=== PATIENT | female | born 1990 | race African-American/Black ===

== ENCOUNTER 2018-05-30 22:04 | Emergency (ER) | payer MEDICAID ==
[2018-05-30] MEDS ORDERED: CLINDAMYCIN HCL 150 MG CAPSULE PO ONE (23:50)
--- NOTE | 2018-05-30 23:53 | ER Document Report ---
ED General - General Chief Complaint: Wound Infection Stated Complaint: POST OP PROBLEMS Time Seen by Provider: 05/30/18 23:01 Primary Care Provider: ARTURO HANSON MD [ACTIVE STAFF] - Follow up as needed (CALL TOMORROW AT 8AM FOR APPT) Notes: Patient is a 28-year-old female, 2 weeks status post , low-lying for delivery, presents with concerns of incisional site infection. The patient reports that for the past several days she has noted some mild pain to the middle area of her incision as well as some swelling to the area. She is also reporting some purulent drainage from the area. Pain is described as a throbbing, mild, constant discomfort. Touching the area worsens the pain. Nothing improves the pain. She did have her done at [facility], no local OB. Has not contacted the OB regarding her concerns. She has not had fever or constitutional symptoms. TRAVEL OUTSIDE OF THE [place] IN LAST 30 DAYS: No - Related Data Allergies/Adverse Reactions: No Known Allergies Allergy (Verified 05/30/18 22:15) Past Medical History - General Information source: Patient - Social History Smoking Status: Never Smoker Frequency of alcohol use: None Drug Abuse: None Lives with: Family Family History: Reviewed & Not Pertinent Patient has suicidal ideation: No Patient has homicidal ideation: No Renal/ Medical History: Denies: Hx Peritoneal Dialysis Review of Systems - Review of Systems Notes: Constitutional: Negative for fever. HENT: Negative for sore throat. Eyes: Negative for visual changes. Cardiovascular: Negative for chest pain. Respiratory: Negative for shortness of breath. Gastrointestinal: Negative for abdominal pain, vomiting or diarrhea. Genitourinary: Negative for dysuria. Musculoskeletal: Negative for back pain. Skin: Positive for incisional drainage Neurological: Negative for headaches, weakness or numbness. 10 point ROS negative except as marked above and in HPI. Physical Exam - Vital signs Vitals: Temp Pulse Resp BP Pulse Ox 98.3 F 84 18 131/84 H 98 05/30/18 22:25 05/30/18 22:25 05/30/18 22:25 05/30/18 22:25 05/30/18 22:25 Interpretation: Normal Notes: PHYSICAL EXAMINATION: GENERAL: Well-appearing, well-nourished and in no acute distress. HEAD: Atraumatic, normocephalic. EYES: Pupils equal round and reactive to light, extraocular movements intact, sclera anicteric, conjunctiva are normal. ENT: nares patent, oropharynx clear without exudates. Moist mucous membranes. NECK: Normal range of motion, supple without lymphadenopathy LUNGS: Breath sounds clear to auscultation bilaterally and equal. No wheezes rales or rhonchi. HEART: Regular rate and rhythm without murmurs ABDOMEN: Soft, nontender, normoactive bowel sounds. No guarding, no rebound. No masses appreciated. EXTREMITIES: Normal range of motion, no pitting or edema. No cyanosis. NEUROLOGICAL: No focal neurological deficits. Moves all extremities spontaneously and on command. PSYCH: Normal mood, normal affect. SKIN: Warm, Dry, normal turgor, the transverse incision has a small area of what appears to be an incisional abscess, mild fluctuance to the area. No surrounding erythema or significant induration. Course - Re-evaluation Re-evalutation: 05/30/18 23:52 Patient presents with terms of drainage from her low transverse incisional line. There is a small area of purulent accumulation in the midline of the incision that appears to be a small incisional abscess. Patient is otherwise well in appearance, no starting erythema. Abdominal exam is benign. Vitals within normal limits. Wound culture obtained. I did discuss with Dr. Hanson, patient will be seen in OB clinic tomorrow. Clindamycin has been initiated. At this time will discharge with return precautions and follow-up recommendations. Verbal discharge instructions given a the bedside and opportunity for questions given. Medication warnings reviewed. Patient is in agreement with this plan and has verbalized understanding of return precautions and the need for follow-up in OB clinic tomorrow - Vital Signs Vital signs: Temp Pulse Resp BP Pulse Ox 98.7 F 62 18 126/89 H 100 05/31/18 00:07 05/31/18 00:07 05/31/18 00:07 05/31/18 00:07 05/31/18 00:07 Discharge - Discharge Clinical Impression: Surgical site infection, section wound complication Condition: Good Disposition: HOME, SELF-CARE Additional Instructions: You need to follow-up in the OB clinic tomorrow. I spoke with Dr. Hanson the OBGYN talent consultant tonight. She said please call at 8 AM in the morning and get an appointment tomorrow. Take antibiotics as prescribed. Return sooner to the emergency department if you develop a fever of greater than 100.4 F, worsening swelling or drainage from the area, or any other symptoms that are worrisome to you Prescriptions: Clindamycin HCl 300 mg PO TID #30 capsule Referrals: ARTURO HANSON MD [ACTIVE STAFF] - Follow up as needed (CALL TOMORROW AT 8AM FOR APPT)
[2018-05-31 00:07] VITALS: BP 126/89
== END 2018-05-31 00:10 | disposition home or self-care (01) ==
LOC: ER 22:04
DX: O86.01 Infection of obstetric surgical wound, superficial incisional site (principal)
CPT/HCPCS: 99282; 87070; 87205; 87075; 87077; 87186; J3490

== ENCOUNTER 2018-12-04 00:57 | Emergency (ER) | payer SELFPAY ==
[2018-12-04 02:54] LABS: ABSOLUTE LYMPHOCYTES (AUTO) 1.8 10^3/uL (0.5-4.7); ABSOLUTE MONOCYTES (AUTO) 0.2 10^3/uL (0.1-1.4); ABSOLUTE NEUT (AUTO) 1.6 10^3/uL (1.7-8.2); BASOPHILS % (AUTO) 0.5 % (0-2); HEMOGLOBIN 11.7 g/dL (12.0-15.5); LYMPHOCYTES % (AUTO) 50.2 % (13-45); MEAN CORPUSCULAR HEMOGLOBIN 26.7 pg (27.0-33.4); MEAN CORPUSCULAR HGB CONC 32.6 g/dL (32.0-36.0); MEAN CORPUSCULAR VOLUME 82 fl (80-97); MONOCYTES % (AUTO) 5.8 % (3-13); PLATELET COUNT 167 10^3/uL (150-450); RED BLOOD COUNT 4.39 10^6/uL (3.72-5.28); RED CELL DISTRIBUTION WIDTH 15.8 % (11.5-14.0); SEGMENTED NEUTROPHILS % (AUTO) 42.5 % (42-78); TOTAL CELLS COUNTED % (AUTO) 100 %; WHITE BLOOD COUNT 3.7 10^3/uL (4.0-10.5)
[2018-12-04 03:07] LABS: AMORPHOUS SEDIMENT,URINE TRACE /HPF; APPEARANCE,URINE SLIGHTLY-CLOUDY; BILIRUBIN,URINE NEGATIVE (NEGATIVE); COLOR,URINE YELLOW; GLUCOSE, URINE NEGATIVE (NEGATIVE); KETONES,URINE NEGATIVE (NEGATIVE); LEUKOCYTE ESTERASE,URINE NEGATIVE (NEGATIVE); NITRITE,URINE NEGATIVE (NEGATIVE); PROTEIN,URINE NEGATIVE (NEGATIVE); URINE SPECIFIC GRAVITY 1.018; UROBILINOGEN,URINE NEGATIVE mg/dL (<2.0)
[2018-12-04 03:10] LABS: ANION GAP 9 (5-19); BLOOD UREA NITROGEN 9 mg/dL (7-20); CALCIUM 9.8 mg/dL (8.4-10.2); CARBON DIOXIDE 25 mmol/L (22-30); CHLORIDE 104 mmol/L (98-107); GLUCOSE 99 mg/dL (75-110); POTASSIUM 4.1 mmol/L (3.6-5.0)
[2018-12-04] MEDS ORDERED: FENTANYL CITRATE INJ/PF 100 MCG/2 ML AMPUL IV ONE (03:43)
--- NOTE | 2018-12-04 04:48 | RADIOLOGY REPORT (SQ) ---
CLINICAL HISTORY: BL pelvic pain COMPARISON: None. TECHNIQUE: US PELVIS TRANSVAGINAL on 12/04/2018 3:43 AM CDT FINDINGS: Uterus measures 8.9 cm. Endometrial stripe measures 14 mm. Both ovaries are normal in size with patent flow. Cervix measures 2.7 cm. IMPRESSION: Unremarkable study.
--- NOTE | 2018-12-04 05:07 | ER Document Report ---
ED General - General Chief Complaint: Abdominal Pain Stated Complaint: ABDOMINAL PAIN Time Seen by Provider: 12/04/18 02:50 Notes: Patient is a 28-year-old female presents to the emergency department with 24 hours lower pelvic pain. Patient's denying any nausea, vomiting, diarrhea. She is denying any fevers, dysuria, vaginal discharge. 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 Kimo hurd is worried said tumors are back. TRAVEL OUTSIDE OF THE [place] IN LAST 30 DAYS: No - Related Data Allergies/Adverse Reactions: No Known Allergies Allergy (Verified 05/30/18 22:15) Past Medical History - General Information source: Patient - Social History Smoking Status: Never Smoker Chew tobacco use (# tins/day): No Frequency of alcohol use: Occasional Drug Abuse: None Family History: Reviewed & Not Pertinent Patient has suicidal ideation: No Patient has homicidal ideation: No Renal/ Medical History: Denies: Hx Peritoneal Dialysis Review of Systems - Review of Systems Constitutional: denies: Fever EENT: No symptoms reported Cardiovascular: No symptoms reported Respiratory: No symptoms reported Gastrointestinal: See HPI Genitourinary: See HPI Female Genitourinary: See HPI Musculoskeletal: No symptoms reported Skin: No symptoms reported Hematologic/Lymphatic: No symptoms reported Neurological/Psychological: No symptoms reported Physical Exam - Vital signs Vitals: Temp Pulse Resp BP Pulse Ox 98.1 F 81 20 130/82 H 99 12/04/18 01:01 12/04/18 01:01 12/04/18 01:01 12/04/18 01:01 12/04/18 01:01 - Notes Notes: GENERAL: Alert, interacts well. No acute distress. HEAD: Normocephalic, atraumatic. EYES: Pupils equal, round, and reactive to light. Extraocular movements intact. ENT: Oral mucosa moist, tongue midline. NECK: Full range of motion. Supple. Trachea midline. LUNGS: Clear to auscultation bilaterally, no wheezes, rales, or rhonchi. No respiratory distress. HEART: Regular rate and rhythm. No murmur ABDOMEN: Soft, no McBurney's point tenderness, no Schneider sign noted, no left lower abdominal pain noted. Non-distended. Bowel sounds present in all 4 quadrants. Bilateral pelvic pain noted. EXTREMITIES: Moves all 4 extremities spontaneously. No edema, normal radial and dorsalis pedis pulses bilaterally. No cyanosis. BACK: no cervical, thoracic, lumbar midline tenderness. No saddle anesthesia, normal distal neurovascular exam. NEUROLOGICAL: Alert and oriented x3. Normal speech. cranial nerves II through XII grossly intact PSYCH: Normal affect, normal mood. SKIN: Warm, dry, normal turgor. No rashes or lesions noted. Course - Re-evaluation Re-evalutation: 12/04/18 05:05 Laboratory 12/04/18 12/04/18 12/04/18 02:40 02:40 02:40 WBC 3.7 L RBC 4.39 Hgb 11.7 L Hct 36.0 MCV 82 MCH 26.7 L MCHC 32.6 RDW 15.8 H Plt Count 167 Lymph % (Auto) 50.2 H [place] % (Auto) 5.8 Eos % (Auto) 1.0 Baso % (Auto) 0.5 Absolute Neuts (auto) 1.6 L Absolute Lymphs (auto) 1.8 Absolute Monos (auto) 0.2 Absolute Eos (auto) 0.0 Absolute Basos (auto) 0.0 Seg Neutrophils % 42.5 Sodium 138.2 Potassium 4.1 Chloride 104 Carbon Dioxide 25 Anion Gap 9 BUN 9 Creatinine 0.58 Est GFR ( Amer) > 60 Est GFR (MDRD) Non-Af > 60 Glucose 99 Calcium 9.8 Beta HCG, Quant < 2.39 Total Beta HCG NEGATIVE Urine Color YELLOW Urine Appearance SLIGHTLY-CLOUDY Urine pH 6.0 Ur Specific [place] 1.018 Urine Protein NEGATIVE Urine Glucose (UA) NEGATIVE Urine Ketones NEGATIVE Urine Blood NEGATIVE Urine Nitrite NEGATIVE Urine Bilirubin NEGATIVE Urine Urobilinogen NEGATIVE Ur Leukocyte Esterase NEGATIVE Urine WBC (Auto) 1 Urine RBC (Auto) 0 Urine Bacteria (Auto) TRACE Squamous Epi Cells Auto 1 Amorphous Sediment Auto TRACE Urine Mucus (Auto) RARE Urine Ascorbic Acid NEGATIVE Transvaginal US 12/04/18 03:43 IMPRESSION: Unremarkable study. Patient's ultrasound is unremarkable, blood flow shown to both ovaries. I discussed there are no signs of teratomas. Patient states she feels a lot better upon reassessment. I have offered patient a pelvic exam to rule out gonorrhea, chlamydia, bacterial vaginosis, trichomonas, yeast, pelvic inflammatory disease. Patient wishes to refuse pelvic exam at this time. Discussed close follow-up with primary care provider. At this time will discharge with return precautions and follow-up recommendations. Verbal discharge instructions given a the bedside and opportun ity for questions given. Medication warnings reviewed. Patient is in agreement with this plan and has verbalized understanding of return precautions and the need for primary care follow-up in the next 24-72 hours. This medical record was dictated with voice recognizing software. There may be grammatical, syntax errors that are unintended. - Vital Signs Vital signs: Temp Pulse Resp BP Pulse Ox 98.1 F 81 20 130/82 H 99 12/04/18 01:01 12/04/18 01:01 12/04/18 01:01 12/04/18 01:01 12/04/18 01:01 - Laboratory Result Diagrams: 12/04/18 02:40 12/04/18 02:40 Laboratory results interpreted by me: 12/04/18 02:40 WBC 3.7 L Hgb 11.7 L MCH 26.7 L RDW 15.8 H Lymph % (Auto) 50.2 H Absolute Neuts (auto) 1.6 L Discharge - Discharge Clinical Impression: Pelvic pain Condition: Stable Disposition: HOME, SELF-CARE Instructions: Pelvic Pain ([facility]) Additional Instructions: As we discussed you have been seen and treated in the emergency department for your lower pelvic pain. Please make sure you follow-up with your primary care provider in the next 24 to 48 hours. Please return to the emergency room for any further concerns. Forms: Return to Work Referrals: [facility] [Provider Group] - Follow up as needed [facility] [Provider Group] - Follow up as needed
[2018-12-04 05:50] VITALS: BP 137/78
== END 2018-12-04 05:25 | disposition home or self-care (01) ==
LOC: ER 00:57
DX: R10.2 Pelvic and perineal pain (principal); R10.9 Unspecified abdominal pain
CPT/HCPCS: 36415; 84702; 85025; 80048; 81001; 76830; 93976; J3010; 96374; 99284